=== PATIENT | male | born 1970 | race Caucasian/White ===

== ENCOUNTER 2017-02-09 23:08 | Emergency (ER) | payer BC ==
--- NOTE | 2017-02-09 23:53 | ED Physician Chart ---
Chief Complaint/HPI - Patient Information Date Seen:: 02/09/17 Time Seen:: 23:25 Chief Complaint:: diaphoretic, abd pain History of Present Illness:: The patient states that he was sitting at home recovering from a recent left knee arthroscopic meniscus repair at 6 PM this evening when he experienced sudden mid epigastric pain, diaphoresis, and chills. These symptoms lasted for approximately 20 minutes and then he went in to lie down in bed and woke up symptom-free in approximately 4 hours. The patient did not experience any chest pain, shortness of breath, nausea vomiting, cough, fever, and the left lower extremity although painful has has not been increasingly painful or swollen but in fact slowly improving. The patient is unsure as to whether or not he "passed out" but there was no evidence of incontinence, tongue trauma, headache, or other signs or symptoms that he had in fact had a seizure or lakes[place] syncopal episode. The patient feels he is completely back to his postoperative health at baseline at the time of his presentation to the emergency room. Allergies:: Allergies Allergy/AdvReac Type Severity Reaction Status Date / Time No Known Allergies Allergy Verified 02/09/17 23:23 Vitals:: Vital Signs - 8 hr 02/09/17 23:10 Temp 98.4 F HR 59 RR 18 BP 135/84 O2 Sat % 99 Historian:: Patient Review:: Nurse's Note Reviewed Review of Systems - Review of Systems General/Constitutional: No fever, Chills, Diaphoresis Skin: No rash Head: No headache Eyes: No loss of vision Neck: No neck pain, No stiffness Cardio Vascular: No chest pain, No palpitations Pulmonary: No SOB, No cough GI: No nausea, No vomiting Psychiatric: No prior psych history Neurological: No focal symptoms, No weakness, No headache, No dizziness (the review of systems is otherwise unremarkable except for that mentioned in the chief complaint or history of present illness.) Past Medical History - Past Medical History Past Medical History: Thyroid disorder Family History: Heart disease, Diabetes Melitus, HTN, Cancer, Other (patient denies family history of thoracic artery dissection, he is unsure whether there was any thromboembolic disease but one or more of his parents may have been on Coumadin at some time for some unknown reason.) Social History: Non Smoker, No Alcohol, No Drug Use, , Employed Surgical History: other (patient with recent left knee surgery 5 days ago, hernia repair in August 2016) Psychiatricy History: None Medication: Reviewed Medication Reviewed:: Patient is currently taking small amounts of Tylenol No. 3 for pain which is a medicine that he is tolerated well in the past. In addition to this he takes Synthroid for hypothyroidism. Family Medical History - Family Member Mother History Unknown: Yes Hx Family Cancer: Yes Hx Family Coronary Artery Disease: Yes Hx Family Congestive Heart Failure: Yes Hx Family Hypertension: Yes Hx Family Diabetes: Yes Physical Exam - Physical Examination General/Constitutional: Awake, Well-developed, well-nourished, Alert, GCS 15, Non-toxic appearing Other Gen/Cons comments:: Physical exam: In general the patient is a 46 year old healthy appearing male lying quietly in the gurney in no apparent distress. Skin vital signs are normal and he is mildly bradycardic with a rate of 59. HEENT exam is unremarkable with no evidence of JVD, stridor, or respiratory distress. There is no icteric change and the skin turgor is normal. Chest is remarkable for bilateral symmetrical breath sounds with no rubs, no wheezes, no rhonchi, and the patient is able to take a deep breath without any tenderness. Cardiovascular exam is unremarkable with a pulse of 66, strong and regular, and equal in both upper extremities. The abdomen is remarkable for old surgical scars which are clean. Bowel sounds are completely unremarkable. The abdomen is completely nontender to deep palpation in all areas, without guarding, rigidity, distention, or hernias. There is no organomegaly and no bruits are heard. Groin areas are nontender bilaterally. All of the extremities are normal except for the left lower extremity which has recent surgical incisions in the area of the left knee that appear clean this time. There is generalized swelling in the area of the left knee which extends to the distal left thigh circumferentially and is associated with mild heat and tenderness. This ends at approximately the mid thigh and does not extend more proximally. Distally the calf and foot are nontender and appear symmetrical to the right lower extremity. The patient states that this parents of his left lower extremity has improved throughout his surgical recovery. The neurological exam is unremarkable for focal deficit. The patient states that he is currently back to his saline health status prior to the event this afternoon with no residual sequela. Labs/Radiology/EKG Results - Lab Results Results: trop negative - Radiology Results Results: no dvt - EKG Interpretations EKG Time:: 23:45 Rate & Rhythm: nsr@60 [place]: normal Intervals: pr117, [id number], [id number] Comments:: There is no prior EKG for comparison. And has a small Q-wave in lead 3 with an inverted T-wave and some degree of T-wave flattening in aVF. Despite the computer reading of ST segment elevation, probable normal early repolarization pattern I do not feel that this represents ST segment elevation or hyperacute T- wave insistent with early coronary syndrome at 6 hours post event. The patient has borderline poor R-wave progression and borderline ventricular hypertrophy which may be a reflection of his thin body habitus. Assessment - Assessment General Assessment: 46-year-old male postop patient with sudden onset abdominal pain, diaphoresis. Differential diagnosis includes acute coronary syndrome, arrhythmia, pulmonary embolus, vasovagal event, or some temporary noncatastrophic abdominal etiology. Complete resolution of symptoms during the interim time frame as well as a lack of other malignant prodromal symptoms suggest some type of transient process but will initiate evaluation for the most worrisome possibilities. All aspects of care and the workup as well as The differential diagnosis were explained to the patient. ED Septic Shock - . Is Septic Shock (SBP<90, OR Lactate>4 mmol\\L) present?: No - <6hrs of presentation: Vital Signs: Vital Signs - 8 hr /08/16 23:10 Temp 98.4 F HR 59 RR 18 BP 135/84 O2 Sat % 99 Reassessment (Disposition) - Reassessment Reassessment Condition:: Improved - Diagnosis Diagnosis:: 1. abdominal pain, etiology uncharacterized, resolved. 2. diaphoresis, resolved. - Aftercare/Follow up Instructions Aftercare/Follow-Up Instructions:: Refer to Discharge Instructions, Counseled pt & family regarding lab results/diagnosis & need follow up - Patient Disposition Discharge/Transfer:: Home Condition at Disposition:: Improved ED Discharge Plan - Patient Disposition Admit/Discharge/Transfer: PT DISCHARGED HOME Condition at Disposition: Improved
--- NOTE | 2017-02-10 10:40 | Diagnostic Imaging Report ---
Left lower extremity DVT study HISTORY: Left knee surgery, postoperative pain and swelling COMPARISON: None Technique: Longitudinal and transverse sonographic images of the left lower extremity veins were obtained with doppler analysis. FINDINGS: There is normal compressibility, augmentation and phasicity of the left common femoral, superficial femoral, popliteal, and posterior tibial veins. No thrombus is visualized. IMPRESSION: No evidence of thrombus within the left lower extremity veins.
== END 2017-02-10 02:05 | disposition home or self-care (01) ==
LOC: ER 23:08
DX: R10.13 Epigastric pain (principal); R61 Generalized hyperhidrosis; E07.9 Disorder of thyroid, unspecified
CPT/HCPCS: 36415-UA; 84484-TC; 93005; 93971-TC-LT